=== PATIENT | male | born 1975 | race Caucasian/White ===

== ENCOUNTER 2019-06-28 16:24 | Emergency (ER) | payer OTHER, SELFPAY ==
--- NOTE | ~2019-06-28 | XR_ITS ---
EXAMINATION: [id number] DATE: 06/28/2019 17:08 INDICATION: Right rib pain. Cough. TECHNIQUE: A frontal view of the chest on 2 radiographs and 3 views of the right ribs were obtained. COMPARISON: None. FINDINGS: There is mild atelectasis in left lower lung zone. No pleural effusion or pneumothorax. The heart size is normal. IMPRESSION: 1. No rib fracture. Reviewed, dictated and finalized at location A. IC OPERATOR IMPRESSION: 1. No rib fracture.
[2019-06-28 16:34] VITALS: BP 150/87; PULSE 124; RESP 20; TEMP 38.2; O2SAT 98
--- NOTE | 2019-06-28 17:19 | ED.GENADULT ---
HPI - General Adult General Chief complaint: Upper Respiratory Infection Stated complaint: Rib Pain Time Seen by Provider: 06/28/19 17:01 Source: patient and RN notes reviewed Mode of arrival: ambulatory Limitations: no limitations History of Present Illness HPI narrative: Patient presents today with a two-week history of right-sided rib pain. He has been ill and was treated for sinusitis at [facility] on 06/19/2019 after a 1.5-week history of cough. He had previously taken a Z-King, and was subsequently prescribed steroids and benzonatate. States the remainder of his symptoms had improved, but the rib pain seems to worsen. Patient states today he feels, like I've been hit by a truck. Rib pain is anterior and posterior is worsened with deep breath, coughing, and movement. He currently rates his pain 3/10 at rest, which increases to 8/10. Denies history of asthma or COPD. He does smoke cigarettes. Reports intermittent shortness of breath. Denies any current fever. MD complaint: Right rib pain Related Data Allergies Allergy/AdvReac Type Severity Reaction Status Date / Time No Known Allergies Allergy Mild Verified 06/28/19 16:44 Review of Systems Review of Systems: Narrative: CONSTITUTIONAL: Denies body aches, fever, chills, or sweats. EYES: Denies visual changes, redness, or discharge. ENT: Denies rhinorrhea, congestion, sore throat, or otalgia. CARDIOVASCULAR: Denies chest pain, palpitations, or edema. RESPIRATORY: + Cough, intermittent shortness of breath, right rib pain GASTROINTESTINAL: Denies abdominal pain, nausea, vomiting, or diarrhea. GENITOURINARY: Denies dysuria or hematuria. SKIN: Denies rash, itching, or wounds. MUSCULOSKELETAL: Denies back pain, joint pain, or myalgia. NEUROLOGIC: Denies headache, numbness, tingling, or weakness. PSYCH: Denies depression or anxiety. [facility] Social History Social History (Updated 06/28/19 @ 17:22 by Verito Cantu, DIRECTOR OF MEDICAL STAFF SERVICES, ) Smoking status: Current every day smoker Tobacco type: cigarettes Gender identity (if verbalized by the patient): Male Comments At time of signature, I have reviewed and agree with nursing past medical, surgical, social and family history unless otherwise noted. Please see nursing chart for further information. There is no relevant family history pertinent to the presenting complaint Exam Narrative: Exam Narrative: GENERAL: Well-appearing, well-nourished, and in no acute distress. HEAD: Normocephalic, atraumatic. EYES: EOMI. No redness or drainage. Conjunctivae normal. ENT: Mucous membranes pink and moist. NECK: Normal AROM. CHEST: No respiratory distress. Clear to auscultation. Tenderness to the right mid anterior and posterior ribs. No crepitus or edema noted. HEART: Regular rate and rhythm. No murmur appreciated. Normal peripheral pulses. MUSCULOSKELETAL: No bony tenderness. EXTREMITIES: Normal range of motion. No edema. SKIN: Warm, dry, no rash. NEURO: No focal deficits. Alert and oriented x3. Gait steady. PSYCH: Normal affect. No signs of depression or anxiety. Course Vital Signs Vital signs: Vital Signs Temperature 100.7 F H 06/28/19 16:34 Pulse Rate 124 H 06/28/19 16:34 Respiratory Rate 06/28/19 16:34 Blood Pressure 150/87 H 06/28/19 16:34 Pulse Oximetry 98 06/28/19 16:34 Temperature 100.7 F H 06/28/19 16:34 Pulse Rate 124 H 06/28/19 16:34 Respiratory Rate 06/28/19 16:34 Blood Pressure 150/87 H 06/28/19 16:34 Pulse Oximetry 98 06/28/19 16:34 Reviewed. Pt has been instructed to follow up with his PCP regarding his elevated blood pressure today. Medical Decision Making Differential Diagnosis Differential Diagnosis: Pleurisy, pneumonia, musculoskeletal chest wall pain Medical Records Medical records reviewed: Yes I reviewed the patient's medical records. Vital Signs Vital Signs: Vital Signs Temperature 100.7 F H 06/28/19 16:34 Pulse Rate 124 H 06/28/19 16:34 Respiratory R
[2019-06-28 17:58] VITALS: PULSE 120
== END 2019-06-28 17:58 | disposition home or self-care (01) ==
PROVIDERS: Emergency Provider Nurse Practitioner; PCP Family Medicine Adolescent Medicine
DX: R07.89 Other chest pain (principal); F17.210 Nicotine dependence, cigarettes, uncomplicated
CPT/HCPCS: 71101; 87804; 99213; G0463